=== PATIENT | female | born 2000 | race Caucasian/White ===

== ENCOUNTER 2024-09-25 18:50 | Emergency (ER) | payer OTHER, SELFPAY ==
[2024-09-25 18:57] VITALS: BP 119/79
[2024-09-25 19:17] LABS: % Basophils 0.6 % (0-2); % Eosinophils 2.3 % (0-6); % Immature Granulocytes 0.1 % (0-0.5); % Lymphocytes 33.1 % (20.5-51.1); % Monocytes 7.2 % (1.7-9.3); % Neutrophils 56.7 % (42.2-75.2); Absolute Basophils 0.1 10^3/uL (0-0.2); Absolute Eosinophils 0.2 10^3/uL (0-0.7); Absolute Lymphocytes 2.7 10^3/uL (1.2-3.4); Absolute Monocytes 0.6 10^3/uL (0.1-0.6); Absolute Neutrophils 4.6 10^3/uL (1.4-6.5); Hematocrit 39.1 % (37.0-47.0); Hemoglobin 13.1 g/dL (12.0-16.0); Mean Corp Hgb Conc. 33.5 g/dL (33.0-37.0); Mean Corpuscular Hgb 30.8 pg (27.0-31.0); Mean Platelet Volume 10.2 fL (7.4-10.4); Nucleated Red Blood Cells % 0 %; Platelet Count 305 10^3/uL (130-400); Red Blood Cell Count 4.25 10^6/uL (4.20-5.40); Red Cell Dist. Width 12.3 % (11.5-14.5); White Blood Cell Count 8.1 10^3/uL (4.8-10.8)
[2024-09-25 19:31] LABS: HCG, Serum Qualitative Screen Negative
[2024-09-25 19:32] LABS: ALT (SGPT) 17 U/L (0-35); AST (SGOT) 21 U/L (14-36); Albumin 4.4 g/dl (3.5-5.0); Alkaline Phosphatase 61 U/L (38-126); Blood Urea Nitrogen 18 mg/dl (7-17); Calcium 9.8 mg/dl (8.4-10.2); Carbon Dioxide 26 mmol/L (22-30); Glucose 101 mg/dl (70-99); Total Bilirubin 0.5 mg/dl (0.2-1.3); Total Protein 7.3 g/dl (6.3-8.2); eGFR > 60.00
[2024-09-25 20:22] LABS: Chloride 105 mmol/L (98-107); Potassium 4.4 mmol/L (3.5-5.1); Sodium 138 mmol/L (135-145)
[2024-09-25 21:56] VITALS: BP 124/74
[2024-09-25 23:06] VITALS: BP 109/87
[2024-09-26] VITALS: BP 104/70
--- NOTE | 2024-09-26 01:12 | ED.GENMED ---
History of Present Illness
General
Chief Complaint: Seizure
Source: patient
Exam Limitations: none
Time Seen by Provider: 09/25/24 23:37
Nursing documentation reviewed up to this point in time: agreed with
History of Present Illness
History of Present Illness:
Patient to ED for report of episode of uncontrolled shaking last PM. States she was aware she was shaking but was unable to stop and felt like she was unable to talk. episode lasted approx 15 minutes and then she report having a panic attack. She
spoke with her neurologist (follows for migraines) and he advised her to come to eD to r/o seizure. No episodes since. SHe report her usual mild headache. Denies fever/chills, recent illness. No urinary incontinence, no post ictal. No prior
history of same.
Past History
Past History
ED Past Medical History: Other (migraines)
Review of Systems
Review of Systems
Allergies reviewed?: Yes
All Other Systems: ROS reviewed and negative except as documented in HPI and ROS
Constitutional: Reports no symptoms
EENT: Reports no symptoms
Respiratory: Reports no symptoms
Cardiac: Reports no symptoms
ABD/GI: Reports no symptoms
: Reports no symptoms
Musculoskeletal: Reports no symptoms
Skin: Reports no symptoms
Neurological: Reports other (Episode of uncontrolled shaking last PM)
Psychiatric: Reports no symptoms
Phy Exam
General Physical Exam
General Presentation: well appearing and no apparent distress
General age: appears stated age
General Skin: warm and dry
General Habitus: normal
General Mental: alert
General Hydration: appears well hydrated
Eye Exam
Eye Exam: PERRL, EOMI, conjunctiva normal and globe normal
Cardiovascular Exam
Cardiovascular Exam: regular rate/rhythm and no edema
Pulmonary Exam
Pulmonary Exam: no respiratory distress and chest non tender
Neurological Exam
Neurological Exam: alert, oriented x3 and normal gait
Musculoskeletal Exam
Musculoskeletal Exam: full ROM and no edema
Skin Exam
Skin Exam: normal color and warm/dry
Psychiatric Exam
Psychiatric Exam: normal mood/affect
Course
Orders/Labs/Results
Orders:
Orders
09/25/24 19:02
Test Result ONCE
09/25/24 19:07
Complete Blood Count/With Diff Urgent
Comprehensive Metabolic Panel Urgent
HCG, Serum Qualitative Screen Urgent
Abnormal Lab Results
09/25/24
19:07
BUN 18 H mg/dl
(7-17)
Glucose 101 H mg/dl
(70-99)
09/25/24 19:07
09/25/24 19:07
Vital Signs
Initial and Last Documented VS:
Initial Vital Signs
Temp Pulse Resp BP Pulse Ox
98.8 F 92 18 119/79 98
09/25/24 18:57 09/25/24 18:57 09/25/24 18:57 09/25/24 18:57 09/25/24 18:57
Last Documented Vital Signs
Temp Pulse Resp BP Pulse Ox
98.8 F 66 22 104/70 98
09/25/24 18:57 09/26/24 00:30 09/26/24 00:30 09/26/24 00:00 09/26/24 00:30
*Critical Care Note
Total Time (30-74mins, 75-104mins- exclusive of procedures): Not Applicable
Update Note
Update Note:
Patient to ED for eval of an episode of uncontrolled shaking followed by a panic attack last PM. No concerning findings on exam tonight. Labs WNL. She has been symptom free since episode last PM. No post ictal phase. No LOC, no incontinence.
Doubtful for seizure. WIll discharge home, recommend follow up with her neurologist. Case discussed with Dr. Chavez who agrees with plan.
ED Attending Note
-
Portions of this chart may have been created with voice recognition software.� Occasional wrong word or��sound alike� substitutions may have occurred due to the inherent limitations of voice recognition software.
Discharge Plan
Departure
Patient Disposition: Home (Routine Discharge)
Date of Disposition: 09/25/24
Time of Disposition: 23:59
Patient with high blood pressure during this ER visit?: No
Condition: Good
Covid-19: Not Applicable
Discharge Problem:
Episode of shaking
Instructions: Sleep insufficiency
Referrals:
Cole Willoughby MD [Family Provider] - Tomorrow
Interventions
Interventions:
*Risk Screen - Suicide Last Done: 09/25/24 18:57
*General Assessment Last Done: 09/25/24 18:57
*Neglect/Abuse Screening Last Done: 09/25/24 18:57
*ED- Fall Risk Assessment Last Done: 09/26/24 00:30
*ED COVID-19 Vaccine History Last Done: 09/25/24 18:57
*Nursing Disposition Last Done: 09/26/24 00:30
ED- Cardiac Assessment Last Done: 09/26/24 00:10
ED- Neurological Assessment Last Done: 09/26/24 00:10
ED- Pulmonary Assessment Last Done: 09/26/24 00:10
Discharge Date and Time
Discharge Date/Time: 09/26/24 00:30
Print Language: ITALIAN
== END 2024-09-26 00:30 | disposition home or self-care (01) ==
LOC: EMR 18:50
PROVIDERS: Emergency Medicine; EMERGENCY PHYSICIAN Emergency Medicine; FAMILY PHYSICIAN Student in an Organized Health Care Education/Training Program
DX: R25.1 Tremor, unspecified (principal)
CPT/HCPCS: 99283; 80053; 84703; 85025